=== PATIENT | female | born 1985 | race Hispanic/Latino ===

== ENCOUNTER 2018-01-12 09:31 | Inpatient (IN) | payer MEDICAID ==
[~2018-01-12] VITALS: Ht 154.9 cm; Wt 78.9 kg
[2018-01-12 10:16] LABS: APPEARANCE,URINE Clear (CLEAR); BILIRUBIN,URINE Negative (NEGATIVE); COLOR,URINE Yellow (YELLOW); GLUCOSE, URINE (UA) Negative (NEGATIVE); KETONES,URINE Negative (NEGATIVE); LEUKOCYTE ESTERASE ,URINE Negative (NEGATIVE); NITRATE,URINE Negative (NEGATIVE); OCCULT BLOOD,URINE Negative (NEGATIVE); PH,URINE 8.5 (5.0-8.0); PROTEIN,URINE Negative (NEGATIVE); UROBILINOGEN,URINE 0.2 mg/dL (0.2-1.0)
[2018-01-12 10:22] LABS: HEMATOCRIT 26.7 % (36-48); MEAN CORPUSCULAR HEMOGLOBIN 27.1 pg (27.0-33.0); MEAN CORPUSCULAR HGB CONC 33.8 g/dL (32.0-36.0); MEAN CORPUSCULAR VOLUME 80.2 fL (79-99); NUCLEATED RED BLOOD CELLS 0.1 % (0.0-0.19); PLATELET COUNT (AUTO) 249 K/uL (130-400); RED BLOOD CELL COUNT(AUTO) 3.33 MIL/uL (4.00-5.50)
[2018-01-12 10:22] LABS: AMPHET/METH SCREEN,URINE NEGATIVE (NEGATIVE); BARBITURATE SCREEN, URINE NEGATIVE (NEGATIVE); BENZODIAZEPINES SCREEN,URINE NEGATIVE (NEGATIVE); CANNABINOID SCREEN,URINE NEGATIVE (NEGATIVE); COCAINE SCREEN,URINE NEGATIVE (NEGATIVE); OPIATE SCREEN,URINE NEGATIVE (NEGATIVE); PHENCYCLIDINE SCREEN,URINE NEGATIVE (NEGATIVE)
[2018-01-12] MEDS ORDERED: LACTATED RINGERS 1000ML 1,000 ML IV SCH ×2 (10:30→12:30)
[2018-01-12] MEDS: TERBUTALINE SULFATE VIAL 1MG/ML SQ SCH ×2 (10:48→11:38)
[2018-01-12] MEDS ORDERED: CEFAZOLIN SODIUM 1 GM VIAL ONE (12:27)
[2018-01-12] MEDS ORDERED: CEFAZOLIN SODIUM 1 GM VIAL IVP PRN (12:30)
[2018-01-12] MEDS ORDERED: OXYTOCIN 10 UNIT/1ML 10ML VIAL ONE ×2 (13:14→13:43)
[2018-01-12] MEDS ORDERED: DURAMORPH PF1 MG/ML 10ML AMP IV ONE (13:20)
[2018-01-12] MEDS ORDERED: PROPOFOL 10 MG/ML 20ML VIAL IV ONE (13:34)
[2018-01-12] MEDS ORDERED: MIDAZOLAM HCL 1 MG/ML 2ML VIAL ONE ×2 (13:37→14:11)
[2018-01-12] MEDS ORDERED: OXYTOCIN-LR 20 UNITS/1000 ML 1,000 ML IV PRN (14:09)
[2018-01-12] MEDS ORDERED: DEXTROSE 5 %-0.45 % NACL 1,000 ML IV PRN (14:15)
[2018-01-12] MEDS ORDERED: HYDROCODONE/ACETAMINOPHEN 5/325 MG TAB PO PRN ×4 (14:15→16:45)
[2018-01-12] MEDS ORDERED: ACETAMINOPHEN EXTRA STRENGTH 500 MG TABLET PO PRN (14:15)
[2018-01-12] MEDS ORDERED: LANOLIN 30GM OINTMENT TP PRN (14:15)
[2018-01-12] MEDS ORDERED: IBUPROFEN 800 MG TAB PO SCH (14:15)
[2018-01-12] MEDS ORDERED: DIPH,PERTUSS(ACELL),TET VAC/PF 0.5 ML VIAL IM SCH (14:15)
[2018-01-12] MEDS ORDERED: BISACODYL 10 MG SUPP.RECT RC PRN (14:15)
[2018-01-12] MEDS ORDERED: DIPHENHYDRAMINE HCL 25 MG CAPSULE PO PRN (14:15)
[2018-01-12] MEDS ORDERED: PROMETHAZINE HCL 25 MG/ML 1ML AMPULE IM PRN ×2 (14:15→16:45)
[2018-01-12] MEDS ORDERED: SODIUM CHLORIDE 0.9% 10 ML VIAL IVP PRN ×2 (14:15)
[2018-01-12] MEDS ORDERED: MEPERIDINE-PF 75 MG/ML SYG IM PRN (14:15)
[2018-01-12] MEDS ORDERED: IBUPROFEN 600 MG TABLET PO PRN (14:15)
[2018-01-12] MEDS ORDERED: LACTATED RINGERS 1000ML 1,000 ML IV ONE (15:34)
[2018-01-12] MEDS ORDERED: OXYTOCIN 10 USP UNITS/ML ONE (15:35)
[2018-01-12] MEDS ORDERED: CALDOLOR 800MG+NS 250ML 250 ML IV ONE (16:04)
[2018-01-12 16:22] VITALS: BP 112/68
[2018-01-12] MEDS: CALDOLOR 800MG+NS 250ML 250 ML IV SCH (16:24)
[2018-01-12] MEDS ORDERED: GLYB2.5 PO (16:41)
[2018-01-12] MEDS ORDERED: DiphenhydrAMINE HCL 50 MG/ML VIAL IVP PRN (16:45)
[2018-01-12] MEDS ORDERED: ONDANSETRON HCL MDV 20ML 8 MG in SODIUM CHLORIDE 0.9% 50 ML IVP NR (16:45)
[2018-01-12] MEDS ORDERED: METOCLOPRAMIDE 10 MG/2 ML VIAL IVP PRN (16:45)
[2018-01-12] MEDS ORDERED: MORPHINE SULFATE 2 MG/ML 1ML SYG IVP PRN (16:45)
[2018-01-12] MEDS ORDERED: NALOXONE HCL 0.4 MG/1 ML ML IVP PRN (16:45)
[2018-01-12] MEDS ORDERED: EPHEDRINE SULFATE 50 MG/ML AMPULE IVP PRN (16:45)
[2018-01-12] MEDS ORDERED: ONDANSETRON HCL 4 MG/2 ML VIAL IVP PRN (16:45)
[2018-01-12] MEDS ORDERED: ONDANSETRON HCL MDV 20ML 2 MG/ML VIAL IVP PRN (17:00)
[2018-01-12 19:27] VITALS: BP 105/64
[2018-01-12] MEDS: DOCUSATE SODIUM 100 MG CAP PO SCH (20:25)
[2018-01-12 23:34] VITALS: BP 95/64
[2018-01-13] MEDS ORDERED: CALDOLOR 800MG+NS 250ML 250 ML IV SCH
[2018-01-13 03:39] VITALS: BP 109/74
[2018-01-13 05:06] LABS: HEMATOCRIT 25.1 % (36-48); MEAN CORPUSCULAR HEMOGLOBIN 25.6 pg (27.0-33.0); MEAN CORPUSCULAR HGB CONC 31.8 g/dL (32.0-36.0); MEAN CORPUSCULAR VOLUME 80.7 fL (79-99); NUCLEATED RED BLOOD CELLS 0.1 % (0.0-0.19); PLATELET COUNT (AUTO) 252 K/uL (130-400); RED BLOOD CELL COUNT(AUTO) 3.11 MIL/uL (4.00-5.50); WHITE BLOOD COUNT (AUTO) 8.9 K/uL (4.8-10.8)
[2018-01-13 07:23] VITALS: BP 86/56
[2018-01-13] MEDS ORDERED: CALDOLOR 800MG+NS 250ML 250 ML IV ONE (08:22)
[2018-01-13] MEDS: CALDOLOR 800MG+NS 250ML 250 ML IV SCH (08:27)
[2018-01-13] MEDS: DOCUSATE SODIUM 100 MG CAP PO SCH ×2 (08:28→21:37)
[2018-01-13] MEDS: SIMETHICONE 80 MG TAB.CHEW PO PRN ×3 (08:28→21:37)
[2018-01-13] MEDS: LIDOCAINE 5% TOPICAL PATCH TP SCH (08:28)
[2018-01-13 10:22] LABS: HEPATITIS Bs ANTIGEN SCREEN P Negative (Negative)
[2018-01-13 11:18] VITALS: BP 93/64
[2018-01-13] MEDS: ACETAMINOPHEN-CODEINE 300/30MG TAB PO PRN ×2 (11:41→21:37)
[2018-01-13] MEDS: MEASLES/MUMPS/RUBELLA VACCINE, LIVE 0.5 ML/VIAL SQ SCH ×2 (14:15→16:12)
[2018-01-13 16:02] VITALS: BP 97/55
[2018-01-13] MEDS: IBUPROFEN 800 MG TAB PO SCH (16:11)
[2018-01-13 19:50] VITALS: BP 100/62
[2018-01-13 23:34] VITALS: BP 97/57
[2018-01-14] MEDS: IBUPROFEN 800 MG TAB PO SCH ×2 (00:02→09:05)
[2018-01-14] MEDS: ACETAMINOPHEN-CODEINE 300/30MG TAB PO PRN (03:50)
[2018-01-14 03:51] VITALS: BP 100/65
[2018-01-14 07:00] VITALS: BP 102/66
[2018-01-14] MEDS: SIMETHICONE 80 MG TAB.CHEW PO PRN (09:04)
[2018-01-14] MEDS: DOCUSATE SODIUM 100 MG CAP PO SCH (09:04)
[2018-01-14] MEDS: LIDOCAINE 5% TOPICAL PATCH TP SCH (09:05)
[2018-01-14 11:00] VITALS: BP 105/59
== END 2018-01-14 12:30 | disposition home or self-care (01) | DRG 540 ==
LOC: OBSVTOIN 09:31 → LDH 09:31 → WSH 16:32
PROVIDERS: ADMIT Obstetrics & Gynecology; ATTEND Obstetrics & Gynecology
PROC: 3E0234Z Introduction of Serum, Toxoid and Vaccine into Muscle, Percutaneous Approach (ICD-10-PCS; 2018-01-12)
PROC: 3E0134Z Introduction of Serum, Toxoid and Vaccine into Subcutaneous Tissue, Percutaneous Approach (ICD-10-PCS; 2018-01-12)
PROC: 10D00Z1 Extraction of Products of Conception, Low, Open Approach (ICD-10-PCS; principal; 2018-01-12 13:20)
DX: O60.14X0 Preterm labor third trimester with preterm delivery third trimester, not applicable or unspecified (principal); D64.9 Anemia, unspecified; O34.211 Maternal care for low transverse scar from previous cesarean delivery; O99.02 Anemia complicating childbirth; K66.0 Peritoneal adhesions (postprocedural) (postinfection); Z37.0 Single live birth; Z3A.35 35 weeks gestation of pregnancy; Z23 Encounter for immunization
CPT/HCPCS: 36415; 59510; 80305; 81003; 82948; 85027; 86592; 86850; 86870; 86900; 86901; 86905; 87340; 90707; 96360; 96361; 96374; 96375; A4344; A4450; A4606; J0690; J1741; J2250; J2274; J2590; J2704; J3105; J7120; Q0163

== ENCOUNTER 2018-12-21 05:30 | Day surgery (SDC) | payer MEDICAID ==
[2018-12-20 13:40] VITALS: BP 114/75
[2018-12-20 13:59] LABS: BASOPHILS % (AUTO) 0.8 % (0.0-5.0); EOSINOPHILS % (AUTO) 4.6 % (0.0-8.0); LYMPHOCYTES % (AUTO) 43.7 % (21.0-51.0); MEAN CORPUSCULAR HEMOGLOBIN 27.1 pg (27.0-33.0); MEAN CORPUSCULAR VOLUME 84.8 fL (79-99); MONOCYTES % (AUTO) 3.3 % (3.0-13.0); NEUTROPHILS % (AUTO) 47.6 % (40.0-77.0); PLATELET COUNT (AUTO) 279 K/uL (130-400); RED CELL DISTRIBUTION WIDTH 14.1 % (11.0-15.5); WHITE BLOOD COUNT (AUTO) 7.3 K/uL (4.8-10.8)
[2018-12-21] VITALS (11 sets, daily range): BP systolic 98–123; BP diastolic 59–76
[~2018-12-21] VITALS: Ht 154.9 cm; Wt 76.0 kg
[~2018-12-21 05:30] MED LIST: ACET-66 PO
[2018-12-21] MEDS ORDERED: LACTATED RINGERS 1000ML 1,000 ML IV ONE (06:05)
[2018-12-21] MEDS ORDERED: CITRIC ACID/SODIUM CITRATE 30 ML UDCUP ONE (06:23)
[2018-12-21] MEDS ORDERED: MIDAZOLAM HCL 1 MG/ML 2ML VIAL ONE (06:27)
[2018-12-21] MEDS ORDERED: LIDOCAINE PF 2% 5ML ABBOJECT ONE (06:34)
[2018-12-21] MEDS ORDERED: SUCCINYLCHOLINE 200MG/10ML SYR ONE (06:34)
[2018-12-21] MEDS ORDERED: ROCURONIUM 10MG/1ML SYR 10 MG/ML ML ONE (06:35)
[2018-12-21] MEDS ORDERED: FENTANYL CITRATE PF 50 MCG/1 ML 2ML VIAL ONE (06:35)
[2018-12-21] MEDS ORDERED: PROPOFOL 10 MG/ML 20ML VIAL IV ONE (06:35)
[2018-12-21] MEDS ORDERED: OXYTOCIN 10 USP UNITS/ML ONE (06:50)
--- NOTE | 2018-12-21 07:20 | NUR ---
RECOVERY ASSESSMENT PT IN RECOVERY AT THIS TIME. FUNDAL MASSAGE AND SCANT BLEEDING PRESENT ON PAD. PT REPORTS MILD ABDOMINAL CRAMPING. WILL MEDICATE APPROPRIATELY. V/S STABLE AT THIS TIME.
[2018-12-21] MEDS ORDERED: ONDANSETRON HCL MDV 20ML 2 MG/ML VIAL IVP SCH (07:30)
[2018-12-21] MEDS ORDERED: ONDANSETRON HCL 4 MG/2 ML VIAL ONE (07:34)
[2018-12-21] MEDS ORDERED: IBUPROFEN 600 MG TABLET ONE (07:34)
[2018-12-21] MEDS ORDERED: IBUPROFEN 600 MG TABLET PO SCH ×2 (07:45)
--- NOTE | 2018-12-21 08:05 | NUR ---
PATIENT RECEIVED PT FROM [facility], S/P SUCTION D&C, STEVEN PAD WITH SCANT AMOUNT OF BLOOD DRAINAGE, PT AWAKE AND ALERT IN BED, NO DISTRESS NOTED, DENIES ANY PAIN OR DISCOMFORTS. VS STABLE ON ARRIVAL.
--- NOTE | 2018-12-21 08:45 | NUR ---
DC PT DC HOME VIA WC,NO DISTRESS NOTED. ACCOMPANIED BY SPOUSE, PT DENIES ANY PAIN OR DISCOMFORTS.
== END 2018-12-21 08:45 | disposition home or self-care (01) ==
LOC: SUH 05:30 → DAH 05:30 → SUH 08:45
PROVIDERS: ATTEND Obstetrics & Gynecology
DX: O03.4 Incomplete spontaneous abortion without complication (principal); F32.9 Major depressive disorder, single episode, unspecified; F41.9 Anxiety disorder, unspecified; O24.419 Gestational diabetes mellitus in pregnancy, unspecified control; Z82.49 Family history of ischemic heart disease and other diseases of the circulatory system; Z80.42 Family history of malignant neoplasm of prostate; Z68.30 Body mass index [BMI] 30.0-30.9, adult; K21.9 Gastro-esophageal reflux disease without esophagitis
CPT/HCPCS: 36415; 59812; 85025; 86850; 86870; 86900; 86901; 86905; 86922; 88305; A4606; J0330; J2001; J2250; J2405; J2590; J2704; J3010; J7120 ×2